=== PATIENT | male | born 1995 ===

== ENCOUNTER → 2017-05-08 | Outpatient (CLI) | payer OTHER | END | disposition home or self-care (01) | LOC: PPH VACUNA 15:32 | DX: Z23 Encounter for immunization (principal) ==

== ENCOUNTER 2019-04-12 16:32 | Outpatient (CLI) | payer OTHER | END 2019-04-12 16:41 | disposition home or self-care (01) | LOC: LAB 16:32 | DX: J11.1 Influenza due to unidentified influenza virus with other respiratory manifestations (principal); R05 Cough ==

== ENCOUNTER → 2019-09-13 | Outpatient (CLI) | payer OTHER ==
[~2019-09-13] MED LIST: NEO-POLYMYXYIN-10 ML OTIC
== END | disposition home or self-care (01) ==
LOC: OFIC 805 11:10
PROVIDERS: ATTEND Otolaryngology
DX: H60.8X2 Other otitis externa, left ear (principal); H61.22 Impacted cerumen, left ear; H90.A22 Sensorineural hearing loss, unilateral, left ear, with restricted hearing on the contralateral side

== ENCOUNTER 2019-09-20 15:28 | Outpatient (CLI) | payer OTHER | END 2019-09-20 16:00 | disposition home or self-care (01) | LOC: OFIC 805 15:28 | PROVIDERS: ATTEND Otolaryngology | DX: H91.8X1 Other specified hearing loss, right ear (principal) ==

== ENCOUNTER 2020-02-19 22:08 | Emergency (ER) | payer OTHER ==
[~2020-02-19] VITALS: Ht 170.2 cm; Wt 74.8 kg
[2020-02-20] MEDS ORDERED: LEVSIN/SL0.125 MG SL (03:46)
[2020-02-20] MEDS ORDERED: PEPCID40 MG PO (03:46)
== END 2020-02-20 04:31 | disposition home or self-care (01) ==
LOC: ER 22:08
DX: R10.11 Right upper quadrant pain (principal); Z03.818 Encounter for observation for suspected exposure to other biological agents ruled out

== ENCOUNTER 2020-02-27 09:13 | Outpatient (CLI) | payer OTHER ==
[~2020-02-27 09:13] MED LIST changes: +LEVSIN/SL0.125 MG SL; +PEPCID40 MG PO
== END 2020-02-27 09:23 | disposition home or self-care (01) ==
LOC: NUCLEAR 09:13
PROVIDERS: ATTEND General Practice
DX: R10.11 Right upper quadrant pain (principal)
CPT/HCPCS: 78452; A9537; J2805

== ENCOUNTER 2020-03-26 15:38 | Outpatient (CLI) | payer OTHER | END 2020-03-26 15:46 | disposition home or self-care (01) | LOC: RAD 15:38 | DX: M41.84 Other forms of scoliosis, thoracic region (principal); M25.561 Pain in right knee; M99.01 Segmental and somatic dysfunction of cervical region; M99.02 Segmental and somatic dysfunction of thoracic region; M99.03 Segmental and somatic dysfunction of lumbar region ==

== ENCOUNTER 2020-06-04 07:05 | Day surgery (SDC) | payer OTHER ==
[~2020-06-04] VITALS: Ht 170.2 cm; Wt 71.2 kg
[2020-06-04] MEDS ORDERED: PERCOCET 5-3251 EACH PO (08:16)
[2020-06-04] MEDS ORDERED: PANTOPRAZOLE SO40 MG PO (08:16)
[2020-06-04] MEDS ORDERED: ZOFRAN4 MG PO (08:17)
== END 2020-06-04 09:00 | disposition home or self-care (01) ==
LOC: CIR.AMB 07:05 → SURH 10:15 → EDSTATUS 11:45 → SURH 11:45 → O/R 15:20
PROVIDERS: ATTEND Surgery
DX: K81.1 Chronic cholecystitis (principal); Z20.822 Contact with and (suspected) exposure to COVID-19

== ENCOUNTER → 2020-10-04 | Outpatient (CLI) | payer OTHER ==
[~2020-10-04] MED LIST changes: +PANTOPRAZOLE SO40 MG PO; +PERCOCET 5-3251 EACH PO; +ZOFRAN4 MG PO
== END | disposition home or self-care (01) ==
LOC: LAB 10:09
PROVIDERS: ATTEND Emergency Medicine Pediatric Emergency Medicine
DX: Z03.818 Encounter for observation for suspected exposure to other biological agents ruled out (principal)

== ENCOUNTER 2021-01-28 23:18 | Emergency (ER) | payer OTHER ==
[~2021-01-28] VITALS: Ht 170.2 cm; Wt 74.8 kg
[2021-01-29] MEDS ORDERED: LEVSIN0.125 MG PO (05:04)
[2021-01-29] MEDS ORDERED: PEPCID AC20 MG PO (05:04)
[2021-01-29] MEDS ORDERED: INTESTINEX680 M2 PO (05:04)
== END 2021-01-29 05:23 | disposition home or self-care (01) ==
LOC: ER 23:18
DX: K52.89 Other specified noninfective gastroenteritis and colitis (principal); A05.9 Bacterial foodborne intoxication, unspecified

== ENCOUNTER → 2021-05-20 | Outpatient (CLI) | payer OTHER ==
[~2021-05-20] MED LIST changes: +INTESTINEX680 M2 PO; +LEVSIN0.125 MG PO; +PEPCID AC20 MG PO
== END | disposition home or self-care (01) ==
LOC: PPH VACUNA 08:00
PROVIDERS: ATTEND Emergency Medicine Pediatric Emergency Medicine
DX: Z23 Encounter for immunization (principal)

== ENCOUNTER 2024-10-27 10:52 | Outpatient (CLI) | payer OTHER ==
[2024-10-27 11:36] LABS: COVID-19 AG POSITIVE (NEGATIVE)
== END 2024-10-27 10:53 | disposition home or self-care (01) ==
LOC: LAB 10:52
PROVIDERS: ATTEND Preventive Medicine Occupational Medicine
DX: J11.1 Influenza due to unidentified influenza virus with other respiratory manifestations (principal); Z20.828 Contact with and (suspected) exposure to other viral communicable diseases